=== PATIENT | male | born 1980 | race Caucasian/White ===

== ENCOUNTER 2021-05-08 20:07 | Emergency (ER) | payer SELFPAY ==
[~2021-05-08] VITALS: Ht 180.3 cm; Wt 2.6 kg
[2021-05-08] MEDS ORDERED: CIPROFLOXACIN 400MG/200ML 200 ML IV ONE (21:00)
[2021-05-08] MEDS ORDERED: HYDROcodone-ACET 5/325MG TAB PO ONE (21:15)
[2021-05-08 22:23] LABS: Basophils # (auto) 0.3 10 ^3/uL (0-0.2); Basophils % (auto) 4.4 % (0.0-2.0); Eosinophils # (auto) 0.9 10 ^3/uL (0-0.8); Eosinophils % (auto) 11.8 % (0.0-7.0); Hematocrit 37.1 % (41.0-53.0); Hemoglobin 12.4 g/dL (13.5-17.5); Lymphocytes # (auto) 1.7 10 ^3/uL (0.4-5.4); Lymphocytes % (auto) 22.4 % (10.0-50.0); Mean Corpuscular Hemoglobin 30.8 pg (28.0-32.0); Mean Corpuscular Hgb Conc. 33.4 g/dL (32.0-36.0); Mean Corpuscular Volume 92.3 fL (80.0-100.0); Monocytes # (auto) 0.5 10 ^3/uL (0-1.3); Monocytes % (auto) 6.5 % (0.0-12.0); Neutrophils # (auto) 4.1 10 ^3/uL (1.6-8.6); Neutrophils % (auto) 54.9 % (37.0-80.0); Nucleated Red Blood Cells % 0.1 %; Red Blood Cells 4.02 10^6/uL (4.5-5.90); Red Cell Distribution Width 13.6 % (11.8-14.3); White Blood Cell 7.5 10^3/uL (4.4-10.8)
[2021-05-08 22:40] LABS: Albumin 3.5 g/dL (3.4-5.0); Anion Gap 3 (5-15); Blood Urea Nitrogen 19 mg/dL (7-18); Calcium 8.5 mg/dL (8.5-10.1); Carbon Dioxide 27 mmol/L (21-32); Chloride 109 mmol/L (98-107); Glucose 120 mg/dL (74-106); Potassium 3.6 mmol/L (3.5-5.1); Sodium 139 mmol/L (136-145)
[2021-05-08 22:43] LABS: Alanine Aminotransferase 18 U/L (16-61); Alkaline Phosphatase 75 U/L (45-117); Aspartate Aminotransferase 21 U/L (15-37); BUN/Creatinine Ratio 27.9; Bilirubin, Total 0.2 mg/dL (0.2-1.0); CRP High Sensitivity < 0.02 mg/dL (< 0.3); GFR African American 164 mL/min; GFR Non-African American 136 mL/min; Total Protein 6.6 g/dL (6.4-8.2)
[2021-05-09 02:00] VITALS: BP 145/81
[2021-05-09] MEDS ORDERED: NEOMYCIN-BACITRACIN-POLYM UNITDOSE PKG TOP OINT TOP ONE (02:00)
[2021-05-09] MEDS ORDERED: ACETAMINOPHEN 325 MG TAB PO ONE (02:15)
== END 2021-05-09 02:26 | disposition home or self-care (01) ==
LOC: EDBD 20:07 → ER 20:09
DX: L03.011 Cellulitis of right finger (principal)
CPT/HCPCS: 36415; 73130; 80053; 85025; 86141; 96365; 99284; J0744

== ENCOUNTER 2021-05-25 18:17 | Emergency (ER) | payer SELFPAY ==
[~2021-05-25] VITALS: Ht 177.8 cm; Wt 74.8 kg
[2021-05-25] MEDS ORDERED: KETOROLAC TROMETH 30 MG/ML 1ML VIAL IM ONE (19:00)
[2021-05-25] MEDS ORDERED: CEPH-509 PO (23:32)
[2021-05-26] MEDS ORDERED: KETOROLAC TROMETH 30 MG/ML 1ML VIAL ONE (00:14)
[2021-05-26 00:20] VITALS: BP 139/91
== END 2021-05-26 00:22 | disposition home or self-care (01) ==
LOC: EDBD 18:17 → ER 18:18
DX: L03.011 Cellulitis of right finger (principal)
CPT/HCPCS: 96372; 99283; J1885